=== PATIENT | male | born 1995 | race African-American/Black ===

== ENCOUNTER 2022-08-08 12:43 | Emergency (ER) | payer MEDICAID ==
[~2022-08-08] VITALS: Ht 182.9 cm; Wt 90.0 kg
[2022-08-08] MEDS ORDERED: KETOROLAC 30MG/ML VIAL IV STA (13:52)
[2022-08-08] MEDS ORDERED: LEVETIRACETAM 500MG PREMIX 100 ML IV ONE (14:00)
[2022-08-08] MEDS ORDERED: SODIUM CHLORIDE 0.9% 1,000 ML IV ONE (14:00)
[2022-08-08] MEDS ORDERED: LEVETIRACETAM 500MG PREMIX 100 ML IV NR (16:15)
[2022-08-08] MEDS ORDERED: KETOROLAC 15MG/ML VIAL IV NR (16:15)
[2022-08-08 17:10] LABS: HEMATOCRIT. 39.5 % (42.0-52.0); HEMOGLOBIN. 13.3 g/dL (14.0-18.0); LYMPHOCYTES % 7.4 % (20.0-50.0); MEAN CORPUSCULAR HEMOGLOBIN 28.9 pg (28.0-32.0); MEAN CORPUSCULAR VOLUME 86.2 fL (80.0-94.0); MEAN PLATELET VOLUME 7.6 fl (7.4-10.4); MONOCYTES % 6.3 % (2.0-8.0); NEUTROPHILS % 86.3 % (40.0-76.0); PLATELET 240 x1000/uL (130-400); RED BLOOD CELL COUNT 4.59 mill/uL (4.7-6.1); RED CELL DISTRIBUTION WIDTH 14.9 % (11.6-14.6)
[2022-08-08 17:23] LABS: CHLORIDE 110 mEq/L (98-107)
[2022-08-08 17:34] LABS: ETHANOL BLOOD < 10 mg/dL
[2022-08-08 17:53] LABS: *AMPHETAMINES SCREEN URINE NEGATIVE (NEGATIVE); *BARBITURATES SCREEN URINE NEGATIVE (NEGATIVE); *BENZODIAZEPINES SCREEN URINE PRESUMTIVE POSITIVE (NEGATIVE); *COCAINE SCREEN URINE NEGATIVE (NEGATIVE); CANNABINOID URINE SCREEN PRESUMTIVE POSITIVE (NEGATIVE); METHADONE URINE SCREEN NEGATIVE (NEGATIVE); OPIATES URINE SCREEN PRESUMTIVE POSITIVE (NEGATIVE); PHENCYCLIDINE URINE SCREEN NEGATIVE (NEGATIVE)
[2022-08-09 11:33] VITALS: BP 107/69
== END 2022-08-09 11:40 | disposition short-term general hospital (02) ==
LOC: ER 12:43
DX: G40.909 Epilepsy, unspecified, not intractable, without status epilepticus (principal); M54.50 Low back pain, unspecified; M54.6 Pain in thoracic spine; F12.10 Cannabis abuse, uncomplicated; F13.10 Sedative, hypnotic or anxiolytic abuse, uncomplicated; F11.10 Opioid abuse, uncomplicated; D64.9 Anemia, unspecified; Z20.822 Contact with and (suspected) exposure to COVID-19; W01.0XXA Fall on same level from slipping, tripping and stumbling without subsequent striking against object, initial encounter; Y93.89 Activity, other specified; Y92.018 Other place in single-family (private) house as the place of occurrence of the external cause
CPT/HCPCS: 36415; 70450; 71045; 72070; 72100; 80053; 80305; 80320; 82962; 84484; 85025; 87426; 93005; 96365; 96375; 99285; C9803; J1885; J1953; J7030; Z7610; G0480